=== PATIENT | male | born 1950 | race Caucasian/White ===

== ENCOUNTER 2024-05-25 19:38 | Emergency (ER) | payer MEDICARE ==
[2024-05-25 20:06] LABS: #Basophils 0.07 10x3/uL (0.0-0.2); %Basophils 0.8 % (0.0-1.0); %Eosinophils 2.5 % (0.0-10.0); %Lymphocytes 21.8 % (21.0-51.0); %Neutrophils 67.7 % (42.0-75.0); Hematocrit 44.3 % (42.0-52.0); Hemoglobin 14.9 g/dL (14.0-18.0); Mean Corpuscular HGB CONC 33.6 g/dL (32.0-36.0); Mean Corpuscular Hemoglobin 28.8 pg (27.0-31.0); Mean Corpuscular Volume 85.7 fL (78.0-98.0); Mean Platelet Volume 9.3 fL (7.4-10.4); Platelet Count 328 10x3/uL (130-400); RBC Distribution Width 15.2 % (11.5-14.5); Red Blood Cell (RBC) Count 5.17 mill/uL (4.70-6.10)
[2024-05-25 20:19] LABS: ALT (SGPT) 16 U/L (8-55); AST (SGOT) 16 U/L (5-34); Albumin 3.7 g/dL (3.4-4.8); Alkaline Phosphatase 96 U/L (40-110); Anion Gap 14 mmol/L (10-20); BUN (Urea Nitrogen) 16 mg/dL (8.4-25.7); Bilirubin, Total 0.4 mg/dL (0.2-1.2); Calc. Creatinine Clearance 0 mL/min (70-130); Calcium 9.1 mg/dL (7.8-10.44); Carbon Dioxide 22 mmol/L (23-31); Chloride 107 mmol/L (98-107); Estimated GFR 92; Globulin 2.6 g/dL (2.4-3.5); Glucose 126 mg/dL (83-110); Potassium 3.6 mmol/L (3.5-5.1); Protein, Total 6.3 g/dL (5.8-8.1); Sodium 139 mmol/L (136-145)
== END 2024-05-25 23:08 | disposition home or self-care (01) ==
LOC: ERS 19:38 → MERGE 19:38 → ERS 23:08
DX: M25.462 Effusion, left knee (principal); M65.9 Synovitis and tenosynovitis, unspecified; I10 Essential (primary) hypertension
CPT/HCPCS: 36415; 80053; 83880; 85025; 86141; 87040

== ENCOUNTER 2024-05-26 13:41 | Observation (INO) | payer MEDICARE ==
[2024-05-26 17:59] LABS: #Basophils 0.06 10x3/uL (0.0-0.2); %Basophils 0.7 % (0.0-1.0); %Eosinophils 1.6 % (0.0-10.0); %Lymphocytes 19.3 % (21.0-51.0); %Monocytes 8.6 % (0.0-10.0); %Neutrophils 69.5 % (42.0-75.0); Hematocrit 44.7 % (42.0-52.0); Hemoglobin 15.4 g/dL (14.0-18.0); Mean Corpuscular HGB CONC 34.5 g/dL (32.0-36.0); Mean Corpuscular Hemoglobin 28.9 pg (27.0-31.0); Mean Platelet Volume 9.2 fL (7.4-10.4); Platelet Count 336 10x3/uL (130-400); RBC Distribution Width 15.4 % (11.5-14.5); Red Blood Cell (RBC) Count 5.32 mill/uL (4.70-6.10)
[2024-05-26 18:18] LABS: ALT (SGPT) 16 U/L (8-55); AST (SGOT) 16 U/L (5-34); Albumin 3.8 g/dL (3.4-4.8); Alkaline Phosphatase 94 U/L (40-110); Anion Gap 10 mmol/L (10-20); BUN (Urea Nitrogen) 17 mg/dL (8.4-25.7); Bilirubin, Total 0.5 mg/dL (0.2-1.2); CRP,High Sensitivity (Inhouse) 0.06 mg/dL (< or = 0.5); Calc. Creatinine Clearance 0 mL/min (70-130); Calcium 9.6 mg/dL (7.8-10.44); Carbon Dioxide 24 mmol/L (23-31); Chloride 111 mmol/L (98-107); Estimated GFR 96; Globulin 2.7 g/dL (2.4-3.5); Glucose 94 mg/dL (83-110); Protein, Total 6.5 g/dL (5.8-8.1); Sodium 141 mmol/L (136-145)
[2024-05-26] MEDS ORDERED: Ondansetron PF 4 MG/2 ML Vial IVP PRN (22:15)
[2024-05-26] MEDS ORDERED: Ondansetron ODT 4 MG TAB SL PRN (22:15)
[2024-05-26] MEDS ORDERED: Acetaminophen 325 MG TAB PO PRN (22:15)
[2024-05-26] MEDS ORDERED: Acetaminophen 650 MG Suppository PR PRN (22:35)
[2024-05-26 23:28] VITALS: BMI 24.7
[2024-05-27 06:12] LABS: #Basophils 0.06 10x3/uL (0.0-0.2); %Basophils 0.7 % (0.0-1.0); %Eosinophils 2.6 % (0.0-10.0); %Lymphocytes 21.8 % (21.0-51.0); %Monocytes 10.2 % (0.0-10.0); %Neutrophils 64.6 % (42.0-75.0); Hematocrit 44.3 % (42.0-52.0); Hemoglobin 15.1 g/dL (14.0-18.0); Mean Corpuscular HGB CONC 34.1 g/dL (32.0-36.0); Mean Corpuscular Hemoglobin 28.6 pg (27.0-31.0); Mean Corpuscular Volume 83.9 fL (78.0-98.0); Mean Platelet Volume 9.3 fL (7.4-10.4); Platelet Count 300 10x3/uL (130-400); RBC Distribution Width 15.5 % (11.5-14.5); Red Blood Cell (RBC) Count 5.28 mill/uL (4.70-6.10)
[2024-05-27 06:29] LABS: Anion Gap 12 mmol/L (10-20); BUN (Urea Nitrogen) 19 mg/dL (8.4-25.7); Calc. Creatinine Clearance 100 mL/min (70-130); Calcium 9.1 mg/dL (7.8-10.44); Carbon Dioxide 24 mmol/L (23-31); Chloride 108 mmol/L (98-107); Estimated GFR 96; Glucose 97 mg/dL (83-110); Sodium 140 mmol/L (136-145)
[2024-05-27] MEDS: Pantoprazole DR 40 MG TAB PO SCH (09:50)
[2024-05-27] MEDS ORDERED: Pantoprazole DR 40 MG TAB PO PRN (13:26)
[2024-05-27] MEDS: Acetaminophen 325 MG TAB PO PRN (14:38)
[2024-05-27] MEDS: traMADol HCl 50 MG TAB PO PRN (16:21)
[2024-05-27 23:05] VITALS: BP 126/77; TEMP 97.9
[2024-05-28] MEDS ORDERED: Docusate 100 MG CAP PO SCH (09:00)
[2024-05-28] MEDS ORDERED: Rosuvastatin 20 MG TAB PO SCH (09:00)
[2024-05-28] MEDS ORDERED: Losartan 25 MG TAB PO SCH (09:00)
[2024-05-28] MEDS ORDERED: CO Q-10 CAPSULE 100 MG PO SCH (09:00)
[2024-05-28] MEDS ORDERED: BuPROPion XL 150 MG ER.TAB PO SCH (09:00)
== END 2024-05-27 20:25 | disposition home or self-care (01) ==
LOC: ERS 13:41 → SURG A 21:50
PROVIDERS: ADMIT Internal Medicine; ATTEND Family Medicine
DX: M25.462 Effusion, left knee (principal); K25.9 Gastric ulcer, unspecified as acute or chronic, without hemorrhage or perforation; K26.9 Duodenal ulcer, unspecified as acute or chronic, without hemorrhage or perforation; I10 Essential (primary) hypertension; Q27.30 Arteriovenous malformation, site unspecified; E78.5 Hyperlipidemia, unspecified; Z90.49 Acquired absence of other specified parts of digestive tract; Z90.89 Acquired absence of other organs; Z98.890 Other specified postprocedural states; Z79.899 Other long term (current) drug therapy
CPT/HCPCS: 36415; 80048; 80053; 85025; 86141; 99284; G0378

== ENCOUNTER 2024-11-04 07:23 | Outpatient (CLI) | payer MEDICARE | END 2024-11-04 07:24 | disposition home or self-care (01) | LOC: BICMRI 07:23 | PROVIDERS: ATTEND Specialist | DX: M23.92 Unspecified internal derangement of left knee (principal); Z96.642 Presence of left artificial hip joint ==